=== PATIENT | female | born 1985 | race American Indian/Alaskan Native ===

== ENCOUNTER 2017-11-29 09:03 | Emergency (ER) | payer OTHER ==
[2017-11-29 09:10] VITALS: BP 118/79
[2017-11-29] MEDS ORDERED: VITAMIN B-1 PO ONE (09:49)
[2017-11-29] MEDS ORDERED: NACL 0.9% 1000 ML 1,000 ML IV ONE (09:49)
[2017-11-29] MEDS ORDERED: THERAGRAN Tab PO ONE (09:49)
[2017-11-29] MEDS ORDERED: Renal Caps PO ONE (09:50)
--- NOTE | 2017-11-29 09:52 | Emergency Department Report ---
ED General Adult HPI - General Chief complaint: Upper Respiratory Infection Stated complaint: CHEST PAINS/ASTMAH ATTACK Time Seen by Provider: 11/29/17 09:44 Source: patient Mode of arrival: Ambulatory Limitations: No Limitations - History of Present Illness Initial comments: Patient presents to the emergency department with a chief complaint of cramping of his hands. Patient states the cramping started today. Patient states she's had this before after drinking alcohol. Patient states just it was his birthday and he drunk more alcohol than usual. Patient has no other complaints -: Sudden Radiation: non-radiation Severity scale (0 -10): 2 Consistency: constant Improves with: none Worsens with: none Associated Symptoms: denies other symptoms Treatments Prior to Arrival: none - Related Data Previous Rx's Medication Instructions Recorded Last Taken Type Albuterol Sulfate [Ventolin HFA] 2 puff IH Q4H PRN #1 hfa.aer.ad 09/09/13 Rx predniSONE [Deltasone] 40 mg PO QDAY #10 tab 05/28/15 Unknown Rx Allergies Allergy/AdvReac Type Severity Reaction Status Date / Time aspirin Allergy Swelling Verified 11/29/17 09:08 ED Review of Systems ROS: Stated complaint: CHEST PAINS/ASTMAH ATTACK Other details as noted in HPI Comment: All other systems reviewed and negative Constitutional: denies: chills, fever Eyes: denies: eye pain, eye discharge, vision change ENT: denies: ear pain, throat pain Respiratory: denies: cough, shortness of breath, wheezing Cardiovascular: denies: chest pain, palpitations Endocrine: no symptoms reported Gastrointestinal: denies: abdominal pain, nausea, diarrhea Genitourinary: denies: urgency, dysuria, discharge Musculoskeletal: denies: back pain, joint swelling, arthralgia Skin: denies: rash, lesions Neurological: denies: headache, weakness, paresthesias Psychiatric: denies: anxiety, depression Hematological/Lymphatic: denies: easy bleeding, easy bruising ED Past Medical Hx - Past Medical History Hx Asthma: Yes (last attack a few weeks ago, no nebulizer) Additional medical history: 3 abortions (no D&C). Cholelithiasis - Surgical History Hx Cholecystectomy: Yes - Social History Smoking Status: Current Every Day Smoker Substance Use Type: Alcohol - Medications Home Medications: Home Medications Medication Instructions Recorded Confirmed Last Taken Type Albuterol Sulfate [Ventolin HFA] 2 puff IH Q4H PRN #1 hfa.aer.ad 09/09/1302/14/14 Rx predniSONE [Deltasone] 40 mg PO QDAY #10 tab 05/28/15 Unknown Rx ED Physical Exam - General Limitations: No Limitations General appearance: alert, in no apparent distress - Head Head exam: Present: atraumatic, normocephalic - Eye Eye exam: Present: normal appearance, PERRL, EOMI - ENT ENT exam: Present: mucous membranes moist - Neck Neck exam: Present: normal inspection - Respiratory Respiratory exam: Present: normal lung sounds bilaterally. Absent: respiratory distress, wheezes, rales - Cardiovascular Cardiovascular Exam: Present: regular rate, normal rhythm. Absent: systolic murmur, diastolic murmur, rubs, gallop - GI/Abdominal GI/Abdominal exam: Present: soft, normal bowel sounds. Absent: distended, tenderness - Extremities Exam Extremities exam: Present: normal inspection - Back Exam Back exam: Present: normal inspection - Neurological Exam Neurological exam: Present: alert, oriented X3, CN II-XII intact. Absent: motor sensory deficit - Psychiatric Psychiatric exam: Present: normal affect, normal mood - Skin Skin exam: Present: warm, dry, intact, normal color. Absent: rash ED Course Vital Signs 11/29/17 09:08 Temperature 98.5 F Pulse Rate 80 Respiratory 20 Rate Blood Pressure 118/79 O2 Sat by Pulse 100 Oximetry Critical care attestation.: If time is entered above; I have spent that time in minutes in the direct care of this critically ill patient, excluding procedure time. ED Disposition Condition: Stable Referrals: PRIMARY CARE, [Primary Care Provider] - 3-5 Days
[2017-11-29] MEDS ORDERED: DUONEB *Not for PRN Use IH ONE (09:56)
[2017-11-29] MEDS ORDERED: SOLU-Medrol IV ONE (09:56)
--- NOTE | 2017-11-29 10:06 | Emergency Department Report ---
ED General Adult HPI - General Chief complaint: Upper Respiratory Infection Stated complaint: CHEST PAINS/ASTMAH ATTACK Time Seen by Provider: 11/29/17 09:44 Source: patient Mode of arrival: Ambulatory Limitations: No Limitations - History of Present Illness Initial comments: Patient presents to the emergency department with a chief complaint of congestion of her chest along wheezing. Patient states she has a history of asthma and seasonal allergies and believes she is having an asthma attack. Patient denies any chest pain or abdominal pain. Patient has no other complaints. -: Gradual Location: chest Radiation: non-radiation Severity scale (0 -10): 0 Consistency: constant Improves with: none Worsens with: none Associated Symptoms: denies other symptoms Treatments Prior to Arrival: none - Related Data Previous Rx's Medication Instructions Recorded Last Taken Type Albuterol Sulfate [Ventolin HFA] 2 puff IH Q4H PRN #1 hfa.aer.ad 09/09/13 Rx predniSONE [Deltasone] 40 mg PO QDAY #10 tab 05/28/15 Unknown Rx ALBUTEROL Inhaler(NF) [VENTOLIN 2 puff IH Q4HR PRN #1 inha 11/29/17 Unknown Rx Inhaler(NF)] predniSONE [Deltasone] 50 mg PO QDAY #5 tab 11/29/17 Unknown Rx Allergies Allergy/AdvReac Type Severity Reaction Status Date / Time aspirin Allergy Swelling Verified 11/29/17 09:08 ED Review of Systems ROS: Stated complaint: CHEST PAINS/ASTMAH ATTACK Other details as noted in HPI Comment: All other systems reviewed and negative Constitutional: denies: chills, fever Eyes: denies: eye pain, eye discharge, vision change ENT: denies: ear pain, throat pain Respiratory: wheezing. denies: cough, shortness of breath Cardiovascular: denies: chest pain, palpitations Endocrine: no symptoms reported Gastrointestinal: denies: abdominal pain, nausea, diarrhea Genitourinary: denies: urgency, dysuria, discharge Musculoskeletal: denies: back pain, joint swelling, arthralgia Skin: denies: rash, lesions Neurological: denies: headache, weakness, paresthesias Psychiatric: denies: anxiety, depression Hematological/Lymphatic: denies: easy bleeding, easy bruising ED Past Medical Hx - Past Medical History Hx Asthma: Yes (last attack a few weeks ago, no nebulizer) Additional medical history: 3 abortions (no D&C). Cholelithiasis - Surgical History Hx Cholecystectomy: Yes - Social History Smoking Status: Current Every Day Smoker Substance Use Type: Alcohol - Medications Home Medications: Home Medications Medication Instructions Recorded Confirmed Last Taken Type Albuterol Sulfate [Ventolin HFA] 2 puff IH Q4H PRN #1 hfa.aer.ad 09/09/1302/14/14 Rx predniSONE [Deltasone] 40 mg PO QDAY #10 tab 05/28/15 Unknown Rx ALBUTEROL Inhaler(NF) [VENTOLIN 2 puff IH Q4HR PRN #1 inha 11/29/17 Unknown Rx Inhaler(NF)] predniSONE [Deltasone] 50 mg PO QDAY #5 tab 11/29/17 Unknown Rx ED Physical Exam - General Limitations: No Limitations General appearance: alert, in no apparent distress - Head Head exam: Present: atraumatic, normocephalic - Eye Eye exam: Present: normal appearance, PERRL, EOMI - ENT ENT exam: Present: mucous membranes moist - Neck Neck exam: Present: normal inspection - Respiratory Respiratory exam: Present: normal lung sounds bilaterally, wheezes. Absent: respiratory distress, rales, rhonchi - Cardiovascular Cardiovascular Exam: Present: regular rate, normal rhythm. Absent: systolic murmur, diastolic murmur, rubs, gallop - GI/Abdominal GI/Abdominal exam: Present: soft, normal bowel sounds. Absent: distended, tenderness - Extremities Exam Extremities exam: Present: normal inspection - Back Exam Back exam: Present: normal inspection - Neurological Exam Neurological exam: Present: alert, oriented X3, CN II-XII intact. Absent: motor sensory deficit - Psychiatric Psychiatric exam: Present: normal affect, normal mood - Skin Skin exam: Present: warm, dry, intact, normal color. Absent: rash ED Course Vital Signs 11/29/17 09:08 Temperature 98.5 F Pulse Rate 80 Respiratory 20 Rate Blood Pressure 118/79 O2 Sat by Pulse 100 Oximetry ED Medical Decision Making - Medical Decision Making Patient improved after breathing treatment and steroids Critical care attestation.: If time is entered above; I have spent that time in minutes in the direct care of this critically ill patient, excluding procedure time. ED Disposition Clinical Impression: Asthma Disposition: DC-01 TO HOME OR SELFCARE Is pt being admited?: No Does the pt Need Aspirin: No Condition: Stable Instructions: Asthma (ED) Additional Instructions: return if worse Prescriptions: ALBUTEROL Inhaler(NF) [VENTOLIN Inhaler(NF)] 2 puff IH Q4HR PRN #1 inha PRN Reason: Wheezing predniSONE [Deltasone] 50 mg PO QDAY #5 tab Referrals: PRIMARY CARE, [Primary Care Provider] - 3-5 Days [facility] [Outside] - 3-5 Days Forms: Work/School Release Form(ED) Time of Disposition: 11:36
== END 2017-11-29 11:48 | disposition home or self-care (01) ==
LOC: ED 09:03
DX: J45.909 Unspecified asthma, uncomplicated (principal); F17.200 Nicotine dependence, unspecified, uncomplicated; Z90.49 Acquired absence of other specified parts of digestive tract; Z88.6 Allergy status to analgesic agent
CPT/HCPCS: 94640; 96374; 99283; J2930

== ENCOUNTER 2019-01-15 11:05 | Emergency (ER) | payer OTHER ==
[2019-01-15 11:30] VITALS: BP 118/76
--- NOTE | 2019-01-15 11:33 | Emergency Department Report ---
Blank Doc - Documentation Documentation: 33-year-old female that presents with chest pain and SOB. This initial assessment/diagnostic orders/clinical plan/treatment(s) is/are subject to change based on patient's health status, clinical progression and re- assessment by fellow clinical providers in the ED. Further treatment and workup at subsequent clinical providers discretion. Patient/guardians urged not to elope from the ED as their condition may be serious if not clinically assessed and managed. Initial orders include: 1- Patient sent to [facility] for further evaluation and treatment 2- labs 3- EKG 4- CXR
[2019-01-15] MEDS ORDERED: NORCO 5/325 PO ONE (11:58)
[2019-01-15] MEDS ORDERED: DUONEB *Not for PRN Use IH ONE (11:58)
[2019-01-15] MEDS ORDERED: DECADRON IV ONE (11:58)
--- NOTE | 2019-01-15 12:03 | Emergency Department Report ---
ED Chest Pain HPI - General Chief Complaint: Dyspnea/Respdistress Stated Complaint: CHEST TIGHT/SOB Time Seen by Provider: 01/15/19 11:32 Source: patient Mode of arrival: Ambulatory Limitations: No Limitations - History of Present Illness Initial Comments: 33-year-old -[place] female patient with history of asthma and smoking complains of sudden onset of substernal chest pain x today. She states the chest pain began after helping her boyfriend move a heavy sofa. She states she had some shortness of breath especially with lying back. States her inhaler didn't relieve the chest pain and shortness of breath briefly but it returned and hour or 2 later. A 8 out of 10 in severity and she states it feels like a squeezing type pain. She denies any cardiac history, history of DVT/PE, leg pain/swelling, recent long travel, or family history of heart disease. Severity scale (0 -10): 8 Quality: squeezing Consistency: constant Improves With: medication-other Worsens With: supine re: denies: nausea, vomting, diaphoresis Other Symptoms: denies: cough, fever, syncope - Related Data On Oral Contraceptives: Yes Previous Rx's Medication Instructions Recorded Last Taken Type Albuterol Sulfate [Ventolin HFA] 2 puff IH Q4H PRN #1 hfa.aer.ad 09/09/13 02/14/14 Rx predniSONE [Deltasone] 40 mg PO QDAY #10 tab 05/28/15 Unknown Rx ALBUTEROL Inhaler(NF) [VENTOLIN 2 puff IH Q4HR PRN #1 inha 11/29/17 Unknown Rx Inhaler(NF)] predniSONE [Deltasone] 50 mg PO QDAY #5 tab 11/29/17 Unknown Rx ALBUTEROL Inhaler (OR & NICU) 2 puff IH QID PRN #1 inhalation 01/15/19 Unknown Rx [ProAir HFA Inhaler] Prednisone [predniSONE 10 mg 10 mg PO .TAPER #1 tab.ds.pk 01/15/19 Unknown Rx (6-Day Pack, 21 Tabs)] Allergies Allergy/AdvReac Type Severity Reaction Status Date / Time aspirin Allergy Swelling Verified 11/29/17 09:08 Heart Score - HEART Score History: Slightly suspicious EKG: Normal Age: < 45 Risk factors: No known risk factors Troponin: < normal limit HEART Score: 0 ED Review of Systems ROS: Stated complaint: CHEST TIGHT/SOB Other details as noted in HPI Constitutional: no symptoms reported Eyes: denies: vision change Respiratory: shortness of breath. denies: cough, orthopnea, SOB with exertion Cardiovascular: chest pain. denies: palpitations, edema, syncope Gastrointestinal: denies: abdominal pain, nausea, vomiting Musculoskeletal: denies: back pain Skin: denies: rash, lesions Neurological: denies: headache, weakness, numbness, paresthesias Psychiatric: denies: anxiety, depression ED Past Medical Hx - Past Medical History Previous Medical History?: Yes Hx Asthma: Yes (last attack a few weeks ago, no nebulizer) Additional medical history: 3 abortions (no D&C). Cholelithiasis - Surgical History Past Surgical History?: Yes Hx Cholecystectomy: Yes - Social History Smoking Status: Never Smoker Substance Use Type: Marijuana - Medications Home Medications: Home Medications Medication Instructions Recorded Confirmed Last Taken Type Albuterol Sulfate [Ventolin HFA] 2 puff IH Q4H PRN #1 hfa.aer.ad 09/09/13 02/28/14 02/14/14 Rx predniSONE [Deltasone] 40 mg PO QDAY #10 tab 05/28/15 Unknown Rx ALBUTEROL Inhaler(NF) [VENTOLIN 2 puff IH Q4HR PRN #1 inha 11/29/17 Unknown Rx Inhaler(NF)] predniSONE [Deltasone] 50 mg PO QDAY #5 tab 11/29/17 Unknown Rx ALBUTEROL Inhaler (OR & NICU) 2 puff IH QID PRN #1 inhalation 01/15/19 Unknown Rx [ProAir HFA Inhaler] Prednisone [predniSONE 10 mg 10 mg PO .TAPER #1 tab.ds.pk 01/15/19 Unknown Rx (6-Day Pack, 21 Tabs)] ED Physical Exam - General Limitations: No Limitations General appearance: alert, in no apparent distress - Head Head exam: Present: atraumatic, normocephalic - Eye Eye exam: Present: normal appearance - ENT ENT exam: Present: mucous membranes moist - Neck Neck exam: Present: normal inspection - Respiratory Respiratory exam: Present: normal lung sounds bilaterally, chest wall tenderness (para-sternal tenderness on palpation ). Absent: respiratory distress, wheezes, rales, rhonchi, accessory muscle use, decreased breath sounds, prolonged expiratory - Cardiovascular Cardiovascular Exam: Present: regular rate, normal heart sounds. Absent: normal rhythm, systolic murmur, diastolic murmur - GI/Abdominal GI/Abdominal exam: Present: soft, normal bowel sounds. Absent: tenderness - Extremities Exam Extremities exam: Present: normal inspection - Back Exam Back exam: Present: normal inspection - Neurological Exam Neurological exam: Present: alert, oriented X3 - Psychiatric Psychiatric exam: Present: normal affect, normal mood - Skin Skin exam: Present: warm, dry, intact, normal color. Absent: rash ED Course Vital Signs 01/15/19 01/15/19 01/15/19 11:11 12:09 12:34 Temperature 98.3 F Pulse Rate 68 Pulse Rate [ 68 Posterior Bilateral Throughout] Respiratory 19 18 Rate Respiratory 20 Rate [Posterior Bilateral Throughout] Blood Pressure 118/76 O2 Sat by Pulse 99 Oximetry ED Medical Decision Making - Lab Data Result diagrams: 01/15/19 12:03 01/15/19 12:03 Lab Results 01/15/19 01/15/19 01/15/19 Range/Units 12:03 12:03 12:03 WBC 5.1 (4.5-11.0) K/mm3 RBC 4.61 (3.65-5.03) M/mm3 Hgb 13.3 (10.1-14.3) gm/dl Hct 38.9 (30.3-42.9) % MCV 84 (79-97) fl MCH 29 (28-32) pg MCHC 34 (30-34) % RDW 13.2 (13.2-15.2) % Plt Count 262 (140-440) K/mm3 Lymph % (Auto) 38.8 H (13.4-35.0) % Wright % (Auto) 6.1 (0.0-7.3) % Eos % (Auto) 2.7 (0.0-4.3) % Baso % (Auto) 1.0 (0.0-1.8) % Lymph # 2.0 (1.2-5.4) K/mm3 Wright # 0.3 (0.0-0.8) K/mm3 Eos # 0.1 (0.0-0.4) K/mm3 Baso # 0.0 (0.0-0.1) K/mm3 Seg Neutrophils % 51.4 (40.0-70.0) % Seg Neutrophils # 2.6 (1.8-7.7) K/mm3 Sodium 140 (137-145) mmol/L Potassium 4.2 (3.6-5.0) mmol/L Chloride 101.8 (98-107) mmol/L Carbon Dioxide 22 (22-30) mmol/L Anion Gap 20 mmol/L BUN 8 (7-17) mg/dL Creatinine 0.7 (0.7-1.2) mg/dL Estimated GFR > 60 ml/min BUN/Creatinine Ratio 11 % Glucose 85 (65-100) mg/dL Calcium 9.5 (8.4-10.2) mg/dL Troponin T < 0.010 (0.00-0.029) ng/mL HCG, Qual Negative (Negative) - Radiology Data Radiology results: report reviewed Two-view chest x-ray impression: prominence of the bilateral shin could be due to hilar adenopathy or prominent enlarged pulmonary vasculature. Follow-up is recommended - Medical Decision Making 33-year-old female here today with sudden onset of substernal chest pain shortness of breath. Chest pain was reproducible on exam. EKG and troponin are WNL. CBC and CMP WNL. Chest x-ray shows possible hilar adenopathy. Patient given neb treatment and Decadron. She states chest pain and shortness of breath have completely resolved. We'll refill patient's inhaler. Chest pain likely due to to costochondritis caused by heavy lifting of the sofa. Patient informed of abnormal chest x-ray findings and to follow up with her primary care doctor in 1-2 weeks for a recheck. Discussed strict return precautions in detail with patient who states understanding. Critical care attestation.: If time is entered above; I have spent that time in minutes in the direct care of this critically ill patient, excluding procedure time. ED Disposition Clinical Impression: Costochondritis, acute Asthma exacerbation Qualifiers: Asthma severity: mild Asthma persistence: intermittent Qualified Code(s): J45.21 - Mild intermittent asthma with (acute) exacerbation Disposition: TO HOME OR SELFCARE Is pt being admited?: No Condition: Stable Prescriptions: Prednisone [predniSONE 10 mg (6-Day Pack, 21 Tabs)] 10 mg PO .TAPER #1 tab.ds.pk ALBUTEROL Inhaler (OR & NICU) [ProAir HFA Inhaler] 2 puff IH QID PRN #1 inhalation PRN Reason: Shortness Of Breath Referrals: PRIMARY CARE, [Primary Care Provider] - 7-10 days (Recheck of Chest XR)
[2019-01-15 12:26] LABS: Eosinophils # (Auto) 0.1 K/mm3 (0.0-0.4); Eosinophils % (Auto) 2.7 % (0.0-4.3); Hematocrit 38.9 % (30.3-42.9); Hemoglobin 13.3 gm/dl (10.1-14.3); Lymphocytes % (Auto) 38.8 % (13.4-35.0); Mean Corpuscular HGB Conc 34 % (30-34); Mean Corpuscular Volume 84 fl (79-97); Monocytes # (Auto) 0.3 K/mm3 (0.0-0.8); Monocytes % (Auto) 6.1 % (0.0-7.3); Platelet Count 262 K/mm3 (140-440); Red Blood Count 4.61 M/mm3 (3.65-5.03); Red Cell Distribution Width 13.2 % (13.2-15.2)
[2019-01-15 12:57] LABS: BUN/Creatinine Ratio 11; Blood Urea Nitrogen 8 mg/dL (7-17); Calcium 9.5 mg/dL (8.4-10.2); Hemolysis Index 4
--- NOTE | 2019-01-15 13:53 | XRay Report ---
CHEST PA AND LATERAL VIEWS INDICATION: Chest Pain. COMPARISON: None. FINDINGS: Support devices: None. Heart: Within normal limits Lungs/Pleura: Fullness in both hilar regions may be due to prominent pulmonary vasculature or hilar a denopathy. Lungs are clear. No pleural effusion or pneumothorax. IMPRESSION: 1. Prominence of the bilateral shin could be due to hilar adenopathy or prominent/enlarged pulmonary vasculature. Follow-up is recommended. Signer Name: Troy Hill MD Signed: 01/15/2019 1:49 PM Workstation Name: [id number]
== END 2019-01-15 15:36 | disposition home or self-care (01) ==
LOC: ED 11:05
DX: M94.0 Chondrocostal junction syndrome [Tietze] (principal); J45.901 Unspecified asthma with (acute) exacerbation; F12.10 Cannabis abuse, uncomplicated; Z90.49 Acquired absence of other specified parts of digestive tract; Z79.899 Other long term (current) drug therapy; Z88.6 Allergy status to analgesic agent
CPT/HCPCS: 36415; 71046; 80048; 84484; 84703; 85025; 93005; 93010; 94640; 96374; 99284; J1100; 94644